=== PATIENT | male | born 1990 | race Caucasian/White ===

== ENCOUNTER 2016-11-06 21:51 | Emergency (ER) | payer OTHER ==
[~2016-11-06] VITALS: Ht 177.8 cm; Wt 87.9 kg
[~2016-11-06 21:51] MED LIST: NOHOMEMEDS
[2016-11-06 22:59] VITALS: BP 148/86
== END 2016-11-06 23:03 | disposition home or self-care (01) ==
LOC: EME 21:51
PROC: 08C8XZZ Extirpation of Matter from Right Cornea, External Approach (ICD-10-PCS; principal; 2016-11-06)
DX: T15.01XA Foreign body in cornea, right eye, initial encounter (principal); X58.XXXA Exposure to other specified factors, initial encounter; Y93.89 Activity, other specified; Y99.0 Civilian activity done for income or pay
CPT/HCPCS: 99281; 99284

== ENCOUNTER 2017-01-23 09:20 | Emergency (ER) | payer OTHER ==
[~2017-01-23] VITALS: Ht 177.8 cm; Wt 82.8 kg
[2017-01-23 10:50] VITALS: BP 0/0
== END 2017-01-23 10:52 | disposition left against medical advice (07) ==
LOC: EME 09:20
DX: T15.92XA Foreign body on external eye, part unspecified, left eye, initial encounter (principal); X58.XXXA Exposure to other specified factors, initial encounter; F17.200 Nicotine dependence, unspecified, uncomplicated
CPT/HCPCS: 99281; 99283